=== PATIENT | female | born 1970 | race African-American/Black ===

== ENCOUNTER 2017-10-23 18:04 | Emergency (ER) | payer OTHER ==
[2017-10-23] MEDS ORDERED: SODIUM CHLOR 0.9% 1000 ML INJ 1,000 ML IV ONE (18:07)
[2017-10-23 18:09] VITALS: BP 125/59; PULSE 71; RESP 18; TEMP 98.8; O2SAT 98
[2017-10-23] MEDS ORDERED: SODIUM CHLORIDE 0.9% FLUSH 10 ML FLUSH IVF PRN (18:15)
[2017-10-23] MEDS ORDERED: LORazepam 2 MG/ML VIAL IVS ONE (18:15)
--- NOTE | 2017-10-23 18:26 | PD ---
HPI Chief Complaint: Seizure Time Seen by Provider: 18:07 Travel History International Travel<30 days: No Contact w/Intl Traveler<30days: No Traveled to known affect area: No History of Present Illness HPI 47-year-old female complains of a seizure. She was at the beach today. She sees at the beach today. She reports a remote history of seizures in her childhood. She has been off antiepileptics for years now. In the ED she has no this is a complaint. She reports drinking 2 beers. She denies drug abuse. She does complain of headache generalized of moderate severity. PFSH Past Medical History ?: Not Social History Tobacco Use: Yes Allergies-Medications (Allergen,Severity, Reaction): Coded Allergies: No Known Allergies (Unverified , 10/23/17) Reported Meds & Prescriptions Reported Meds & Active Scripts Active No Active Prescriptions or Reported Medications Review of Systems Except as stated in HPI: all other systems reviewed are Neg General / Constitutional: No: Fever Physical Exam Narrative GENERAL: 47-year-old female pleasant well-nourished well-developed moderate distress Vital Signs Date Time Temp Pulse Resp B/P (MAP) Pulse Ox O2 Delivery O2 Flow Rate FiO2 10/23/17 18:09 98.8 71 18 125/59 (81) 98 SKIN: Warm and dry. HEAD: Atraumatic. Normocephalic. EYES: Pupils equal and round. No scleral icterus. No injection or drainage. ENT: No nasal bleeding or discharge. Mucous membranes pink and moist. NECK: Trachea midline. No JVD. CARDIOVASCULAR: Regular rate and rhythm. RESPIRATORY: No accessory muscle use. Clear to auscultation. Breath sounds equal bilaterally. GASTROINTESTINAL: Abdomen soft, non-tender, nondistended. Hepatic and splenic margins not palpable. MUSCULOSKELETAL: Extremities without clubbing, cyanosis, or edema. No obvious deformities. NEUROLOGICAL: Awake and alert. No obvious cranial nerve deficits. Motor grossly within normal limits. Five out of 5 muscle strength in the arms and legs. Normal speech. PSYCHIATRIC: Appropriate mood and affect; insight and judgment normal. Data Data Last Documented VS Vital Signs Date Time Temp Pulse Resp B/P (MAP) Pulse Ox O2 Delivery O2 Flow Rate FiO2 10/23/17 20:55 10/23/17 19:16 98.3 78 18 100 Room Air Orders Orders Complete Blood Count With Diff (10/23/17 18:07) Alcohol (Ethanol) (10/23/17 18:07) Drug Screen, Random Urine (10/23/17 18:07) Ct Brain W/O Iv Contrast(Rout) (10/23/17 ) Blood Glucose (10/23/17 18:07) Ecg Monitoring (10/23/17 18:07) Iv Access Insert/Monitor (10/23/17 18:07) Oximetry (10/23/17 18:07) Comprehensive Metabolic Panel (10/23/17 18:07) Sodium Chlor 0.9% 1000 Ml Inj (Ns 1000 M (10/23/17 18:07) Sodium Chloride 0.9% Flush (Ns Flush) (10/23/17 18:15) Lorazepam Inj (Ativan Inj) (10/23/17 18:15) Acetaminophen (Tylenol) (10/23/17 18:30) Ed Discharge Order (10/23/17 20:47) Labs Laboratory Tests Test 10/23/17 18:10 10/23/17 19:40 White Blood Count 9.1 TH/MM3 Red Blood Count 4.44 MIL/MM3 Hemoglobin 13.2 GM/DL Hematocrit 38.3 % Mean Corpuscular Volume 86.2 FL Mean Corpuscular Hemoglobin 29.7 PG Mean Corpuscular Hemoglobin Concent 34.4 % Red Cell Distribution Width 14.6 % Platelet Count 229 TH/MM3 Mean Platelet Volume 9.5 FL Neutrophils (%) (Auto) 50.7 % Lymphocytes (%) (Auto) 38.5 % Monocytes (%) (Auto) 6.4 % Eosinophils (%) (Auto) 4.0 % Basophils (%) (Auto) 0.4 % Neutrophils # (Auto) 4.6 TH/MM3 Lymphocytes # (Auto) 3.5 TH/MM3 Monocytes # (Auto) 0.6 TH/MM3 Eosinophils # (Auto) 0.4 TH/MM3 Basophils # (Auto) 0.0 TH/MM3 CBC Comment DIFF FINAL Differential Comment Blood Urea Nitrogen 13 MG/DL Creatinine 0.70 MG/DL Random Glucose 96 MG/DL Total Protein 7.9 GM/DL Albumin 3.1 GM/DL Calcium Level 9.4 MG/DL Alkaline Phosphatase 77 U/L Aspartate Amino Transf (AST/SGOT) 37 U/L Alanine Aminotransferase (ALT/SGPT) 34 U/L Total Bilirubin 0.3 MG/DL Sodium Level 141 MEQ/L Potassium Level 4.8 MEQ/L Chloride Level 106 MEQ/L Carbon Dioxide Level 28.2 MEQ/L Anion Gap 7 MEQ/L Estimat Glomerular Filtration Rate 89 ML/MIN Ethyl Alcohol Level LESS THAN 3 MG/DL Urine Opiates Screen NEG Urine Barbiturates Screen NEG Urine Amphetamines Screen NEG Urine Benzodiazepines Screen NEG Urine Cocaine Screen NEG Urine Cannabinoids Screen NEG MDM Medical Decision Making Medical Screen Exam Complete: Yes Emergency Medical Condition: Yes Medical Record Reviewed: Yes Differential Diagnosis Seizure, epilepsy, illness, alcohol abuse, electrolyte imbalance, infectious process Narrative Course Patient evidently had a seizure today while at the beach. She is drinking alcohol. She has a history of epilepsy from her childhood however has not been on antiepileptics for many years. Case discussed with oncoming provider at 7 PM to follow-up results of CT scan and laboratory evaluation. Diagnosis Primary Impression: Seizure Scripts No Active Prescriptions or Reported Meds Disposition: 01 DISCHARGE HOME Condition: Stable Reji Orellana MD October 23, 2017 18:26
[2017-10-23] MEDS ORDERED: ACETAMINOPHEN 325 MG TAB PO ONE (18:30)
[2017-10-23 18:32] LABS: AUTOMATED NEUTROPHIL # 4.6 TH/MM3 (1.8-7.7); BASOPHIL % 0.4 % (0.0-2.0); EOSINOPHIL # 0.4 TH/MM3 (0-0.4); HEMATOCRIT 38.3 % (35.0-46.0); HEMOGLOBIN 13.2 GM/DL (11.6-15.3); LYMPH % 38.5 % (9.0-44.0); LYMPHOCYTE # 3.5 TH/MM3 (1.0-4.8); MEAN CELL VOLUME 86.2 FL (80.0-100.0); MEAN CORPUSCULAR HEMOGLOBIN 29.7 PG (27.0-34.0); MEAN CORPUSCULAR HGB CONC 34.4 % (32.0-36.0); MEAN PLATELET VOLUME 9.5 FL (7.0-11.0); MONO % 6.4 % (0.0-8.0); MONOCYTE # 0.6 TH/MM3 (0-0.9); NEUT % 50.7 % (16.0-70.0); PLATELET COUNT 229 TH/MM3 (150-450); RED BLOOD COUNT 4.44 MIL/MM3 (4.00-5.30); RED CELL DISTRIBUTION WIDTH 14.6 % (11.6-17.2); WHITE BLOOD COUNT 9.1 TH/MM3 (4.0-11.0)
[2017-10-23 18:45] VITALS: BP 104/62; PULSE 82; RESP 18; O2SAT 100; O2SAT 96
--- NOTE | 2017-10-23 19:05 | RADRPT ---
EXAM DATE/TIME: 10/23/2017 18:46 [facility] COMPARISON: No previous studies available for comparison. INDICATIONS : Seizure RADIATION DOSE: 44.16 CTDIvol (mGy) MEDICAL HISTORY : Seizures. SURGICAL HISTORY : None. ENCOUNTER: Initial ACUITY: 1 day PAIN SCALE: 1/10 LOCATION: cranial TECHNIQUE: Multiple contiguous axial images were obtained of the head. Using automated exposure control and adj ustment of the mA and/or kV according to patient size, radiation dose was kept as low as reasonably a chievable to obtain optimal diagnostic quality images. DICOM format image data is available electro nically for review and comparison. FINDINGS: CEREBRUM: The ventricles are normal for age. No evidence of midline shift, mass lesion, hemorrhage or acute in farction. No extra-axial fluid collections are seen. POSTERIOR FOSSA: The cerebellum and brainstem are intact. The 4th ventricle is midline. The cerebellopontine angle i s unremarkable. EXTRACRANIAL: The visualized portion of the orbits is intact. SKULL: The calvaria is intact. No evidence of skull fracture. CONCLUSION: Normal examination for a patient of this age. Alexi Pearson MD on October 23, 2017 at 19:03 Board Certified Radiologist. This report was verified electronically.
[2017-10-23 19:12] LABS: ALBUMIN 3.1 GM/DL (3.4-5.0); ALKALINE PHOSPHATASE 77 U/L (45-117); ALT (GPT) 34 U/L (10-53); AST (GOT) 37 U/L (15-37); BICARBONATE 28.2 MEQ/L (21.0-32.0); BLOOD UREA NITROGEN 13 MG/DL (7-18); CALCIUM 9.4 MG/DL (8.5-10.1); CHLORIDE 106 MEQ/L (98-107); GLOMERULAR FILTRATION RATE 89 ML/MIN (>89); GLUCOSE,RANDOM 96 MG/DL (74-106); SODIUM (NA) 141 MEQ/L (136-145); TOTAL BILIRUBIN ADULT 0.3 MG/DL (0.2-1.0); TOTAL PROTEIN 7.9 GM/DL (6.4-8.2)
[2017-10-23 19:16] VITALS: BP 100/67; PULSE 78; RESP 18; TEMP 98.3; O2SAT 100
--- NOTE | 2017-10-23 20:47 | PD ---
Data Data Last Documented VS Vital Signs Date Time Temp Pulse Resp B/P (MAP) Pulse Ox O2 Delivery O2 Flow Rate FiO2 10/23/17 20:55 10/23/17 19:16 98.3 78 18 100 Room Air Orders Orders Complete Blood Count With Diff (10/23/17 18:07) Alcohol (Ethanol) (10/23/17 18:07) Drug Screen, Random Urine (10/23/17 18:07) Ct Brain W/O Iv Contrast(Rout) (10/23/17 ) Blood Glucose (10/23/17 18:07) Ecg Monitoring (10/23/17 18:07) Iv Access Insert/Monitor (10/23/17 18:07) Oximetry (10/23/17 18:07) Comprehensive Metabolic Panel (10/23/17 18:07) Sodium Chlor 0.9% 1000 Ml Inj (Ns 1000 M (10/23/17 18:07) Sodium Chloride 0.9% Flush (Ns Flush) (10/23/17 18:15) Lorazepam Inj (Ativan Inj) (10/23/17 18:15) Acetaminophen (Tylenol) (10/23/17 18:30) Ed Discharge Order (10/23/17 20:47) Labs Laboratory Tests Test 10/23/17 18:10 10/23/17 19:40 White Blood Count 9.1 TH/MM3 Red Blood Count 4.44 MIL/MM3 Hemoglobin 13.2 GM/DL Hematocrit 38.3 % Mean Corpuscular Volume 86.2 FL Mean Corpuscular Hemoglobin 29.7 PG Mean Corpuscular Hemoglobin Concent 34.4 % Red Cell Distribution Width 14.6 % Platelet Count 229 TH/MM3 Mean Platelet Volume 9.5 FL Neutrophils (%) (Auto) 50.7 % Lymphocytes (%) (Auto) 38.5 % Monocytes (%) (Auto) 6.4 % Eosinophils (%) (Auto) 4.0 % Basophils (%) (Auto) 0.4 % Neutrophils # (Auto) 4.6 TH/MM3 Lymphocytes # (Auto) 3.5 TH/MM3 Monocytes # (Auto) 0.6 TH/MM3 Eosinophils # (Auto) 0.4 TH/MM3 Basophils # (Auto) 0.0 TH/MM3 CBC Comment DIFF FINAL Differential Comment Blood Urea Nitrogen 13 MG/DL Creatinine 0.70 MG/DL Random Glucose 96 MG/DL Total Protein 7.9 GM/DL Albumin 3.1 GM/DL Calcium Level 9.4 MG/DL Alkaline Phosphatase 77 U/L Aspartate Amino Transf (AST/SGOT) 37 U/L Alanine Aminotransferase (ALT/SGPT) 34 U/L Total Bilirubin 0.3 MG/DL Sodium Level 141 MEQ/L Potassium Level 4.8 MEQ/L Chloride Level 106 MEQ/L Carbon Dioxide Level 28.2 MEQ/L Anion Gap 7 MEQ/L Estimat Glomerular Filtration Rate 89 ML/MIN Ethyl Alcohol Level LESS THAN 3 MG/DL Urine Opiates Screen NEG Urine Barbiturates Screen NEG Urine Amphetamines Screen NEG Urine Benzodiazepines Screen NEG Urine Cocaine Screen NEG Urine Cannabinoids Screen NEG MDM Supervised Visit with JAVIER: No Narrative Course Patient CARE assume from Dr. Francisco Orellana at 1900, this is a 47-year-old female with a remote history of what sounds like febrile seizures as a child up into the age of 9. She had a seizure today by description of family members. She received a dose of benzodiazepines here, she was observed for several hours, initial workup including CT head is negative. At this time there is no indication further workup or admission to the hospital, discussed follow-up with a neurologist, discussed seizure precautions first-aid and no driving. Diagnosis Primary Impression: Seizure Referrals: Marycarmen Fry MD Additional Instruction: In the state of [place] he cannot drive for 2 years after having a seizure by law, check with your state laws prior to resuming driving again highly recommend you follow-up with a neurologist prior to resuming driving. If you feel another seizure is coming on lower yourself to the ground way from sharp objects. Scripts No Active Prescriptions or Reported Meds Disposition: 01 DISCHARGE HOME Condition: Stable Gaetano Mckinney MD October 23, 2017 20:47
== END 2017-10-23 21:14 | disposition home or self-care (01) ==
LOC: NEPC 18:04
DX: R56.9 Unspecified convulsions (principal); R51 Headache; Z72.0 Tobacco use
CPT/HCPCS: 70450; 80053; 80307; 85025; 96374; 99284; J2060; J7030